=== PATIENT | male | born 1970 | race Caucasian/White ===

== ENCOUNTER 2019-02-24 10:28 | Emergency (ER) | payer BC, OTHER ==
[2019-02-24 11:31] LABS: Absolute Lymphocytes (CBC) 0.9 K/uL (0.7-4.9); Absolute Monocytes 0.9 K/uL (0.1-1.3); Absolute Neutrophil 6.2 K/uL (1.8-8.0); Basophils % 0.4 % (0-1.3); Eosinophils % 3.4 % (0-4.4); Hematocrit 43.4 % (39.6-49.0); Lymphocytes % 10.7 % (15.3-44.8); MPV 9.1 fL (7.6-11.3); RBC Red Blood Cell Count 4.73 M/uL (4.33-5.43)
[2019-02-24 11:34] LABS: Protime INR 0.94
[2019-02-24] MEDS ORDERED: MAGNE/ALUM HYDROXD 30 ML UCUP ONE (11:36)
[2019-02-24] MEDS ORDERED: LIDOCAINE VISCOUS 2% SOLN 15 ML UDC ONE (11:36)
[2019-02-24 11:48] LABS: ALT/SGPT 31 U/L (12-78); AST/SGOT 18 U/L (15-37); Albumin 3.9 g/dL (3.4-5.0); Alkaline Phosphatase 69 U/L (45-117); BUN Blood Urea Nitrogen 13 mg/dL (7-18); Bicarbonate 26 mmol/L (21-32); Bilirubin Direct 0.1 mg/dL (0-0.2); Bilirubin Total 0.4 mg/dL (0.2-1.0); Glucose Level 105 mg/dL (74-106); Magnesium 2.4 mg/dL (1.8-2.4); NT PRO-BNP 31 pg/mL (<125); Protein, Total 7.6 g/dL (6.4-8.2); Sodium Level 140 mmol/L (136-145); Troponin (Emerg Dept Use Only) < 0.02 ng/mL (0.0-0.045)
--- NOTE | 2019-02-24 12:24 | RAD REPORT ---
EXAM DESCRIPTION: RAD - Chest Single View - 02/24/2019 11:50 am CLINICAL HISTORY: CHEST PAIN Chest pain. COMPARISON: CHEST SINGLE VIEW dated 08/31/2009 FINDINGS: Portable technique limits examination quality. The lungs are grossly clear. The heart is normal in size. No displaced fractures. IMPRESSION: No acute intrathoracic process suspected.
--- NOTE | 2019-02-24 13:13 | ER ---
Nurse's Notes [facility] Name: Obinna Sy Age: 48 yrs Sex: Male : 1970 Arrival Date: 02/24/2019 Time: 10:34 Bed 16 Private MD: Michael Walker T Diagnosis: Dysphagia Presentation: 02/24 10:47 Presenting complaint: Patient states: had trouble getting his lunch down yesterday, was iw feeling some discomfort and soreness in his upper chest, then last night at dinner he had even more trouble getting his food down, denies trouble swallowing but feels like something is stuck in his upper chest, has hx of GERD, states he regurgitated his dinner last night, was able to drink coffee this morning. Transition of care: patient was not received from another setting of care. Onset of symptoms was February 23, 2019. Risk Assessment: Do you want to hurt yourself or someone else?. Initial Sepsis Screen: Does the patient meet any 2 criteria? No. Patient's initial sepsis screen is negative. Does the patient have a suspected source of infection? No. Patient's initial sepsis screen is negative. Care prior to arrival: None. 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 - Social history:: Smoking status: Patient/guardian denies using tobacco. - Ebola Screening: : Patient negative for fever greater than or equal to 101.5 degrees Fahrenheit, and additional compatible Ebola Virus Disease symptoms Patient denies exposure to infectious person Patient denies travel to an Ebola-affected area in the 21 days before illness onset No symptoms or risks identified at this time. Screenin:55 Abuse screen: Denies threats or abuse. Nutritional screening: No deficits noted. aa5 Tuberculosis screening: No symptoms or risk factors identified. Fall Risk None identified. Assessment: 10:55 General: Appears comfortable, Behavior is calm, cooperative. Pain: Complains of pain in aa5 mid-sternal area Pain does not radiate. Pain currently is 1 out of 10 on a pain scale. Quality of pain is described as "discomfort, sore" Pain began 1 day ago. Is continuous. Neuro: Level of Consciousness is awake, alert, obeys commands, Oriented to person, place, time, situation. Cardiovascular: Heart tones S1 S2 present Rhythm is regular. Respiratory: Airway is patent Respiratory effort is even, unlabored, Respiratory pattern is regular, symmetrical, Breath sounds are clear bilaterally. GI: No signs and/or symptoms were reported involving the gastrointestinal system. : No signs and/or symptoms were reported regarding the genitourinary system. EENT: No signs and/or symptoms were reported regarding the EENT system. Derm: Skin is pink, warm \\T\\ dry. Musculoskeletal: Range of motion: intact in all extremities. 11:30 Reassessment: Patient and/or family updated on plan of care and expected duration. Pain aa5 level reassessed. Patient is alert, oriented x 3, equal unlabored respirations, skin warm/dry/pink. Pt notified of wait time for lab and radiology results. . 12:40 Reassessment: Patient is alert, oriented x 3, equal unlabored respirations, skin aa5 warm/dry/pink. Patient states symptoms have not improved. 13:00 Reassessment: Pt given cup of water, pt tolerated well. . aa5 13:33 Reassessment: Patient is alert, oriented x 3, equal unlabored respirations, skin aa5 warm/dry/pink. Vital Signs: 10:51 BP 132 / 98; Pulse 76; Resp 16; Temp 98.2(TE); Pulse Ox 97% on R/A; Weight 97.52 kg; iw Height 6 ft. (182.88 cm); Pain 10/07; 13:00 BP 138 / 88; Pulse 74; Resp 18 S; Temp 98.0(TE); Pulse Ox 98% on R/A; aa5 10:51 Body Mass Index 29.16 (97.52 kg, 182.88 cm) iw ED Course: 10:34 Patient arrived in ED. mr 10:34 Michael Walker MD is Private Physician. mr 10:50 Triage completed. iw 10:51 Arm band placed on. iw 10:52 Oneil Victoria [facility] 10:52 Kenney Knight MD is Attending Physician. [facility] 10:55 Patient has correct armband on for positive identification. Bed in low position. Call aa5 light in reach. Side rails up X 1. 11:05 Linda Florentino, RN is Primary Nurse. aa5 11:24 Initial lab(s) drawn, by me, sent to lab. Inserted saline lock: 20 gauge in right em1 antecubital area, using aseptic technique. Blood collected. 11:30 No provider procedures requiring assistance completed. aa5 11:39 EKG done, by office technologist. reviewed by Oneil CERVANTES. 3 12:20 XRAY Chest (1 view) In Process Unspecified. EDMS 13:11 William Monterroso MD is Referral Physician. [facility] 13:33 IV discontinued, intact, bleeding controlled, No redness/swelling at site. Pressure aa5 dressing applied. Administered Medications: 11:20 Not Given (Physician Discretion): GI Cocktail with - (Maalox Suspension 30 ml, aa5 Lidocaine Liquid 2 % 20 ml, Phenobarbital-Belladonna 10 ml) PO once 11:25 Drug: GI Cocktail without - (Maalox Suspension 30 ml, Lidocaine Liquid 2 % 15 aa5 ml) Route: PO; Outcome: 13:12 Discharge ordered by MD. [facility] 13:33 Discharged to home ambulatory. aa5 13:33 Condition: stable 13:33 Discharge instructions given to patient, Instructed on discharge instructions, follow up and referral plans. Demonstrated understanding of instructions, follow-up care. 13:36 Patient left the ED. ms Signatures: Dispatcher [employer] EDMA Oneil Victoria PA PA jm BonnerRosario mr Alesia Sandhu, RN Juliana Locke ms Brayan Engel em1 Linda Florentino, RN RN pedro5 Eli Rodgers 3 Corrections: (The following items were deleted from the chart) 13:47 10:51 PMHx: palma koenig; leonard bentley
--- NOTE | 2019-02-24 13:13 | EDPHYS ---
Physician Documentation [facility] Name: Obinna Sy Age: 48 yrs Sex: Male : 1970 Arrival Date: 02/24/2019 Time: 10:34 Bed 16 Private MD: Michael Walker T ED Physician Kenney Knight HPI: 02/24 11:16 This 48 yrs old Male presents to ER via Ambulatory with complaints of Chest jmm Tightness. 11:16 The patient or guardian reports chest pain that is located primarily in the anterior [facility] chest wall. Onset: gradually, 1 day(s) ago. The pain does not radiate. Associated signs and symptoms: Pertinent negatives: lightheadedness, shortness of breath. The chest pain is described as causing indigestion. This is a 48 year old male with a history of hlp that presents to the ED with complaints of difficulty swallowing beginning yesterday morning. Patient states he has had a previous history of gerd which he will intermittently treat with zantac. Patient describes chest pain as discomfort which radiates to his throat. . 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 - Social history:: Smoking status: Patient/guardian denies using tobacco. - Ebola Screening: : Patient negative for fever greater than or equal to 101.5 degrees Fahrenheit, and additional compatible Ebola Virus Disease symptoms Patient denies exposure to infectious person Patient denies travel to an Ebola-affected area in the 21 days before illness onset No symptoms or risks identified at this time. ROS: 11:40 Constitutional: Negative for fever, chills, and weight loss. jmm 11:40 Respiratory: Negative for shortness of breath, cough, wheezing, and pleuritic chest pain, Abdomen/GI: Negative for abdominal pain, nausea, vomiting, diarrhea, and constipation, Back: Negative for injury and pain, Skin: Negative for injury, rash, and discoloration, Neuro: Negative for headache, weakness, numbness, tingling, and seizure, Psych: Negative for depression, anxiety, suicide ideation, homicidal ideation, and hallucinations. 11:40 ENT: Positive for difficulty swallowing. 11:40 Cardiovascular: Positive for chest pain. 11:40 All other systems are negative. Exam: 11:35 ECG was reviewed by the Attending Physician. [facility] 11:40 Constitutional: This is a well developed, well nourished patient who is awake, alert, jmm and in no acute distress. Head/Face: atraumatic. Eyes: EOMI, no conjunctival erythema appreciated ENT: Moist Mucus Membranes Neck: Trachea midline, Supple Chest/axilla: Normal chest wall appearance and motion. 11:40 Back: Normal ROM Skin: General appearance color normal MS/ Extremity: Moves all extremities, no obvious deformities appreciated, no edema noted to the lower extremities Neuro: Awake and alert, normal gait 11:40 Cardiovascular: Rate: normal, Rhythm: regular, Pulses: no pulse deficits are appreciated. 11:40 Respiratory: the patient does not display signs of respiratory distress, Respirations: normal, Breath sounds: are clear throughout. 11:40 Abdomen/GI: Inspection: abdomen appears normal, Bowel sounds: normal. Vital Signs: 10:51 BP 132 / 98; Pulse 76; Resp 16; Temp 98.2(TE); Pulse Ox 97% on R/A; Weight 97.52 kg; iw Height 6 ft. (182.88 cm); Pain 1/10; 13:00 BP 138 / 88; Pulse 74; Resp 18 S; Temp 98.0(TE); Pulse Ox 98% on R/A; aa5 10:51 Body Mass Index 29.16 (97.52 kg, 182.88 cm) iw MDM: 11:09 Patient medically screened. [facility] 13:11 Data reviewed: vital signs, nurses notes, lab test result(s), EKG, radiologic studies. [facility] 13:11 ED course: Patient tolerates PO in the ED without difficulty. I arranged follow up with [facility] Dr. Lang tomorrow morning at 0800. Patient is otherwise given strict return precautions. Patient understood and agrees with the plan of care. . 02/24 11:10 Order name: Basic Metabolic Panel; Complete Time: 12:18 [facility] 02/24 11:10 Order name: CBC with Diff; Complete Time: 12:18 [facility] 02/24 11:10 Order name: LFT's; Complete Time: 12:18 02/24 11:10 Order name: Magnesium; Complete Time: 12:18 02/24 11:10 Order name: NT PRO-BNP; Complete Time: 12:18 02/24 11:10 Order name: PT-INR; Complete Time: 12:18 02/24 11:10 Order name: Troponin (emerg Dept Use Only); Complete Time: 12:18 02/24 11:10 Order name: XRAY Chest (1 view); Complete Time: 12:46 02/24 11:10 Order name: EKG; Complete Time: 11:02/24 11:10 Order name: Cardiac monitoring; Complete Time: :15 02/24 11:10 Order name: EKG - Nurse/Tech; Complete Time: :02/24 11:10 Order name: IV Saline Lock; Complete Time: 11:24 02/24 11:10 Order name: Labs collected and sent; Complete Time: :24 02/24 11:10 Order name: O2 Per Protocol; Complete Time: :02/24 11:10 Order name: O2 Sat Monitoring; Complete Time: 11:15 jm EC:40 Rate is 76 beats/min. Rhythm is regular. QRS Britt is Normal. VA interval is normal. QRS jmm interval is normal. QT interval is normal. No Q waves. T waves are Normal. No ST changes noted. Administered Medications: 11:20 Not Given (Physician Discretion): GI Cocktail with - (Maalox Suspension 30 ml, aa5 Lidocaine Liquid 2 % 20 ml, Phenobarbital-Belladonna 10 ml) PO once 11:25 Drug: GI Cocktail without - (Maalox Suspension 30 ml, Lidocaine Liquid 2 % 15 aa5 ml) Route: PO; Disposition: 15:10 Co-signature as Attending Physician, Kenney Knight MD I agree with the assessment and kdr plan of care. Disposition: 02/24/19 13:12 Discharged to Home. Impression: Dysphagia. - Condition is Stable. - Discharge Instructions: Dysphagia. - Medication Reconciliation Form, Thank You Letter, Antibiotic Education, Prescription Opioid Use form. - Follow up: William Monterroso MD; When: Tomorrow at 0800 am. Signatures: Dispatcher [employer] EDMS Kenney Knight MD MD kdr Mickail, Joel, PA PA Alesia Ashraf RN RN iw Solis, Maria ms Linda Florentino RN RN aa5 Corrections: (The following items were deleted from the chart) 11:41 11:16 This is a 48 year old male with a history of hlp that presents to the ED with m complaints of difficulty swallowing beginning . [facility] 13:36 13:12 02/24/2019 13:12 Discharged to Home. Impression: Dysphagia. Condition is Stable. ms Forms are Medication Reconciliation Form, Thank You Letter, Antibiotic Education, Prescription Opioid Use. Follow up: William Monterroso; When: Tomorrow at 0800 am. [facility] 13:47 10:51 PMHx: palma koenig; leonard aa5
--- NOTE | 2019-02-25 08:42 | EKG ---
Test Date: 2019-02-24 Test Time: 11:35:53 Pediatric Nurse Practitioner: AKIRA MEASUREMENT RESULTS: Intervals: Rate: 76 NC: 140 QRSD: 96 QT: 370 QTc: 416 [place]: P: 42 NC: 140 QRS: 27 T: 40 INTERPRETIVE STATEMENTS: Normal sinus rhythm Normal ECG Compared to ECG 09/01/2009 07:04:51 Sinus bradycardia no longer present Electronically Signed On 02-25-19 08:40:21 CDT by Antwan Bee
== END 2019-02-24 13:36 | disposition home or self-care (01) ==
LOC: ER 10:28
DX: R13.10 Dysphagia, unspecified (principal)
CPT/HCPCS: 36415; 71045; 80048; 80076; 83735; 83880; 84484; 85025; 85610; 93005; 99284